=== PATIENT | male | born 1990 | race Caucasian/White ===

== ENCOUNTER → 2019-01-15 | Outpatient (CLI) | payer OTHER ==
[~2019-01-15] MED LIST: IOHEXOL 180 MG/ML 10 ML VIAL. ONE; VENL37.56 PO; methylPREDNISolone ACETATE 40 MG/ML VIAL. ONE; methylPREDNISolone ACETATE 80 MG/ML VIAL. ONE
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
== END | disposition home or self-care (01) ==
LOC: PNCL 13:42
PROVIDERS: ATTEND Anesthesiology
DX: M51.14 Intervertebral disc disorders with radiculopathy, thoracic region (principal); M51.16 Intervertebral disc disorders with radiculopathy, lumbar region; K08.409 Partial loss of teeth, unspecified cause, unspecified class; Z98.890 Other specified postprocedural states; Z79.899 Other long term (current) drug therapy; Z88.1 Allergy status to other antibiotic agents; Z88.8 Allergy status to other drugs, medicaments and biological substances; Z72.89 Other problems related to lifestyle
CPT/HCPCS: 62321; J1030; J1040; Q9965

== ENCOUNTER → 2019-02-05 | Outpatient (CLI) | payer OTHER ==
--- NOTE | 2019-02-06 07:39 | PAIN ---
DATE OF SERVICE: 02/05/2019 DIAGNOSES: Lumbar radiculopathy with lumbar degenerative disk disease thoracic degenerative disk disease. HISTORY OF PRESENT ILLNESS: The patient is a 28-year-old male, who returns for followup status post lumbar epidural steroid injection x 1 through T12-L1 level. The patient reports his pain is about the same. It is actually somewhat worse in the back itself and it is radiating more on the right side and in the right leg, anterior thigh and into the groin on the right side also. The patient reports no new motor or sensory deficits, but his legs become whether feeling very unstable, especially on the right side with standing and walking. He is still working, but is mostly on his feet doing light duty, but he is still on his feet most of his working day. The patient reports his pain is in the low back, mid back across the back into the right and left lower extremities and thighs, especially on the right side greater than left, but present bilaterally. The patient reports it is 8 on a scale of 10 at its worst in the past week, 8 on average and 5 at its least and is an 8 today. The patient reports it is tingling, burning, cramping, radiating, becoming more constant with walking, standing and tight at night and sleeping on the couch because it is a more supportive, which helps him sleep, but it is still waking up several times during the night because of the pain. The patient reports no new motor or sensory deficits. No new bowel or bladder incontinence, feels like a "tingling in the legs and feet, right greater than left" and a heavy sensation. PHYSICAL EXAMINATION: VITAL SIGNS: The patient's blood pressure 143/100, pulse 101, respirations 16, temperature 97.9 degrees Fahrenheit, weight is 261 pounds. GENERAL: The patient is awake, alert, oriented, appropriate, very pleasant demeanor. HEENT: Head shows normocephalic, atraumatic. Extraocular movements are intact and symmetrical. Oral cavity: Mucous membranes moist and pink. Dentition is intact. NECK: Shows anterior throat supple. BACK: Shows spine grossly in the midline. Normal appearing thoracic kyphosis and lumbar lordotic curvature. The patient's lumbar paraspinous muscle shows symmetrical on inspection. On palpation, it shows some moderate tenderness diffusely throughout the upper, middle and lower distribution of the paraspinous muscles, right equal to left. No specific atrophy or hypertrophy. The patient does show good rotational motion of the thoracic and lumbar spine, both laterally as well as extension and flexion without significant limitation or pain reported. EXTREMITIES: The patient's lower extremities show deep tendon reflexes at 2+ in the patellar, 1+ tendo-calcaneus tendons are equal. Motor exam remains strong with 5/5 dorsiflexion and extension bilaterally. Options were discussed with the patient. The patient's old chart was reviewed as was his current medication regimen updated. Current review of systems updated today as well. We will proceed with the second epidural steroid injection today at the L1-L2 level using C-arm fluoroscopic guidance. Risks were again discussed including, but not limited to bleeding, infection, possibility of epidural hematoma, subsequent neurologic compromise, dural puncture, headaches, spinal cord and/or nerve damage, side effects of steroid medication and poor results regarding pain control. The patient understands and wished to proceed. The patient will return to clinic in approximately 1 week for followup. She was counseled as to return appointment, activity level and side effects to be aware of. DIAGNOSIS: Lumbar radiculopathy with lumbar degenerative disk disease and thoracic degenerative disk disease. PROCEDURE: Lumbar epidural steroid injection under sterile prep and drape using local anesthetic at the L1-L2 level using C-arm fluoroscopic guidance. MEDICATION INJECTED: A total of 120 mg Depo-Medrol plus 10 mL of preservative-free normal saline and 2 mL of Isovue for contrast. CONDITION AT DISCHARGE: Stable. The patient tolerated procedure well, had no complications. SHYANN MARIE MD DR: SULEIMAN/jhonatan JOB#: [id number] / [id number]
== END ==
LOC: PNCL 13:38
PROVIDERS: ATTEND Anesthesiology
DX: M51.16 Intervertebral disc disorders with radiculopathy, lumbar region (principal); M51.34 Other intervertebral disc degeneration, thoracic region
CPT/HCPCS: 62323; J1030; J1040; Q9965; 62321

== ENCOUNTER → 2019-02-20 | Outpatient (CLI) | payer OTHER ==
[~2019-02-20] MED LIST changes: +LIDOCAINE 1% PF 2 ML VIAL. ONE
--- NOTE | 2019-02-20 14:38 | PAIN ---
DATE OF SERVICE: 02/20/2019 PROGRESS NOTE FOR PAIN CLINIC DIAGNOSES: Lumbar radiculopathy with lumbar degenerative disk disease and thoracic degenerative disk disease. HISTORY OF PRESENT ILLNESS: The patient is a 28-year-old male who returns for followup status post lumbar epidural steroid injection and thoracic epidural steroid injection. The patient reports only about 10-20% improvement overall with the injections, still pain across the low back, radiating more in the right than the left, at the right side and into the anterior, superior thigh as well as into the lower calves with numbness and tingling in his feet bilaterally. The patient reports a tingling and numbness is no better, pain is a bit improved in the back, but the numbness and tingling is still significant. The patient reports it is 8 on a scale of 10 at its worst over the past week, 7 on average, 4 at its least and is a 5 today. The patient reports it is aching and tight, tingling, burning, cramping, becoming more constant, more radiating, worse with standing on his feet, walking, working activities. The patient reports no loss of motor function. It still is disturbing him in sleep about every 3-4 hours. The patient reports no new bowel or bladder incontinence or other complaints. PHYSICAL EXAMINATION: VITAL SIGNS: The patient's blood pressure 141/96, pulse 98, respirations 20, temperature is 97.8 degrees Fahrenheit, weight is 262 pounds. GENERAL: The patient is awake, alert, oriented, appropriate, very pleasant demeanor. HEENT: Head shows normocephalic, atraumatic. Extraocular movements are intact and symmetrical. Oral cavity: Mucous membranes moist and pink. Dentition is intact. NECK: Shows anterior throat supple without palpable lymphadenopathy noted. Swallow reflex symmetrical. NECK: Shows full rotational motion of cervical spine both laterally as well as extension and flexion without difficulty. The patient's back shows spine grossly in the midline. Normal appearing thoracic kyphosis and lumbar lordotic curvature. Lumbar paraspinous muscle shows symmetrical on inspection. With palpation shows some moderate tenderness diffusely bilaterally throughout the upper, middle and lower distribution of paraspinous muscles without asymmetry, no trigger points, no radiation. EXTREMITIES: The patient's lower extremities show deep tendon reflexes at 2+ in the patellar, 1+ tendo-calcaneus tendons. Motor exam is strong with 5/5 dorsiflexion, extension, quadriceps and hamstring flexion and symmetrical with some moderate pain with quadriceps and hamstring flexion, more on the left than the right with resistance. Peripheral pulses are 1+ posterior tibia. No peripheral edema is noted. PLAN: Options were discussed with the patient. The patient's old chart was reviewed as his current medication regimen updated. Current review of systems updated today as well. We will proceed with a third in a series of lumbar epidural steroid injection today with fluoroscopic guidance. Risks were again discussed including, but not limited to bleeding, infection, possibility of epidural hematoma, subsequent neurological compromise, dural puncture, headaches, spinal cord and/or nerve damage, side effects of steroid medication and poor results regarding pain control. The patient understands and wished to proceed. The patient will return to the clinic in approximately 2 weeks for followup. He was counseled on return appointment, activity level and side effects to be aware of. DIAGNOSES: Lumbar and thoracic degenerative disk disease with radiculopathy. PROCEDURES: Lumbar epidural steroid injection, translaminar approach at L1-L2 level using C-arm fluoroscopic guidance under sterile prep and drape using local anesthetic. MEDICATION INJECTED: A total of 120 mg Depo-Medrol plus 10 mL of preservative-free normal saline and 2 mL of contrast. CONDITION AT DISCHARGE: Stable. The patient tolerated procedure well, had no complications. SHYANN MARIE MD DR: SULEIMAN/jhonatan JOB#: [id number] / [id number]
== END ==
LOC: PNCL 13:21
PROVIDERS: ATTEND Anesthesiology
DX: M51.16 Intervertebral disc disorders with radiculopathy, lumbar region (principal); M51.34 Other intervertebral disc degeneration, thoracic region
CPT/HCPCS: 62323; J1030; J1040; Q9965

== ENCOUNTER → 2019-06-16 | Outpatient (CLI) | payer OTHER ==
[~2019-06-16] MED LIST changes: +ALBU2.5V8 INH; +DOCU100C28 PO; +HYDR-2761 PO; -IOHEXOL 180 MG/ML 10 ML VIAL. ONE; -LIDOCAINE 1% PF 2 ML VIAL. ONE; +METH750T2 PO; +NAPR220T70 PO; +VENL37.5 PO; -methylPREDNISolone ACETATE 40 MG/ML VIAL. ONE; -methylPREDNISolone ACETATE 80 MG/ML VIAL. ONE
[2019-06-16 16:37] LABS: ALBUMIN 4.3 g/dL (3.4-5.0); ALBUMIN/GLOBULIN RATIO 1.2 (1.0-1.7); CALCIUM 9.6 mg/dL (8.5-10.1); CREATININE 1.1 mg/dL (0.7-1.3); GFR 80.3; POTASSIUM 3.9 mmol/L (3.5-5.1); TOTAL BILIRUBIN 0.6 mg/dL (0.2-1.0); TOTAL PROTEIN 7.9 g/dL (6.4-8.2)
[2019-06-16 16:57] LABS: BASO # 0.1 x10^3/uL (0.0-0.2); BASO % 1 % (0-3); EOS # 0.1 x10^3/uL (0.0-0.7); EOS % 2 % (0-3); HEMOGLOBIN 16.8 g/dL (13.0-17.5); LYMPH # 2.2 x10^3/uL (1.0-4.8); LYMPH % 35 % (24-48); MEAN CORPUSCULAR HEMOGLOBIN 31 pg (25-35); MEAN CORPUSCULAR HGB CONC 35 g/dL (31-37); MEAN CORPUSCULAR VOLUME 89 fL (79-100); MONO # 0.6 x10^3/uL (0.0-1.1); MONO % 9 % (0-9); NEUT # 3.3 x10^3/uL (1.8-7.7); NEUT % 53 % (31-73); PLATELET COUNT 231 x10^3/uL (140-400); RED BLOOD COUNT 5.38 x10^6/uL (4.30-5.70); RED CELL DISTRIBUTION WIDTH 13.3 % (11.5-14.5); WHITE BLOOD COUNT 6.2 x10^3/uL (4.0-11.0)
== END | disposition home or self-care (01) ==
LOC: SURGPAT 13:34
PROVIDERS: ATTEND Neurological Surgery
DX: Z01.818 Encounter for other preprocedural examination (principal); M51.15 Intervertebral disc disorders with radiculopathy, thoracolumbar region; M48.05 Spinal stenosis, thoracolumbar region; Z88.0 Allergy status to penicillin; Z88.8 Allergy status to other drugs, medicaments and biological substances
CPT/HCPCS: 36415; 80053; 82306; 85025; 87641

== ENCOUNTER 2019-06-26 08:01 | Observation (INO) | payer OTHER ==
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
[~2019-06-26] VITALS: Ht 177.8 cm; Wt 122.5 kg
[2019-06-26] VITALS (10 sets, daily range): BP systolic 106–140; BP diastolic 65–89
[~2019-06-26 08:01] MED LIST changes: +BACITRACIN 50,000 UNIT in IV NORMAL SALINE 1000ML BAG 1,000 ML IRR ONE; +BUPIVACAINE-EPI 0.5%-1:200000 MPF 30 ML VIAL. INJ ONE; -DOCU100C28 PO; +GELATIN SPONGE SIZE 100. ONE; -HYDR-2761 PO; +HYDROmorphone 2 MG/ML VIAL IV PRN; +KETOROLAC 60 MG/2 ML VIAL. ONE; -METH750T2 PO; +ONDANSETRON PF 4 MG/2 ML VIAL. IV PRN; +PROCHLORPERAZINE 10 MG/2 ML VIAL. IV PRN; +THROMBIN TOPICAL 20,000 UNIT SPRAY.SYRN KIT TP ONE; +VANCOMYCIN 1GM IVPB FOR OMNI 250 ML IV PRN; -VENL37.5 PO; +fentaNYL PF VIAL 100 MCG/2 ML VIAL IV PRN
[2019-06-26] MEDS: IV RINGERS,LACTATED 1000ML 1,000 ML IV SCH ×2 (08:36→15:18)
[2019-06-26] MEDS ORDERED: PROPOFOL 20 ML IV ONE (10:28)
[2019-06-26] MEDS ORDERED: LIDOCAINE 2% PF 5 ML VIAL. ONE (10:28)
[2019-06-26] MEDS ORDERED: DEXAMETHASONE SOD PHOS 20 MG/5 ML VIAL. ONE (10:28)
[2019-06-26] MEDS ORDERED: ONDANSETRON PF 4 MG/2 ML VIAL. ONE (10:28)
[2019-06-26] MEDS ORDERED: MIDAZOLAM HCL/PF 2 MG/2 ML VIAL. ONE (10:29)
[2019-06-26] MEDS ORDERED: REMIFENTANIL 2 MG VIAL. IV ONE (10:29)
[2019-06-26] MEDS ORDERED: PHENYLEPHRINE 10 MG/ML VIAL. ONE (10:29)
[2019-06-26] MEDS ORDERED: ROCURONIUM 50 MG/5 ML VIAL. ONE (10:29)
[2019-06-26] MEDS ORDERED: GLYCOPYRROLATE 1 MG/5 ML VIAL. ONE (11:40)
[2019-06-26] MEDS ORDERED: ePHEDrine PF IN SALINE 50 MG/10 ML SYRINGE. IV ONE (12:08)
[2019-06-26] MEDS ORDERED: PROPOFOL 100 ML IV ONE (12:34)
[2019-06-26] MEDS ORDERED: DESFLURANE > 120 MINUTES IH ONE (13:04)
[2019-06-26] MEDS ORDERED: REMIFENTANIL 1 MG VIAL. IV ONE (13:26)
[2019-06-26] MEDS ORDERED: PROPOFOL 50 ML IV ONE (13:28)
[2019-06-26] MEDS ORDERED: ALBUTEROL SULFATE 2.5 MG/3 ML NEBU. INH PRN (13:30)
[2019-06-26] MEDS ORDERED: 0.9 % SODIUM CHLORIDE 10 ML DISP.SYRIN. IV PRN (13:30)
[2019-06-26] MEDS ORDERED: ONDANSETRON PF 4 MG/2 ML VIAL. IV PRN (13:30)
[2019-06-26] MEDS ORDERED: fentaNYL PF VIAL 100 MCG/2 ML VIAL IVP PRN (13:30)
[2019-06-26] MEDS ORDERED: MAG HYDROX/ALUMINUM HYD/SIMETH 30 ML ORAL.SUSP PO PRN (13:30)
[2019-06-26] MEDS ORDERED: MAGNESIUM HYDROXIDE 2,400 MG/30 ML ORAL.SUSP. PO PRN (13:30)
[2019-06-26] MEDS ORDERED: ZOLPIDEM 5 MG TABLET. PO PRN (13:30)
[2019-06-26] MEDS ORDERED: ACETAMINOPHEN 325 MG TABLET. PO PRN (13:30)
[2019-06-26] MEDS ORDERED: NALOXONE 0.4 MG/ML VIAL. IV PRN (13:30)
[2019-06-26] MEDS ORDERED: HYDROcodone/APAP 5/325MG 1 TAB TABLET PO PRN (13:30)
[2019-06-26] MEDS ORDERED: diphenhydrAMINE HCL 25 MG CAPSULE PO PRN (13:30)
[2019-06-26] MEDS ORDERED: CALCIUM CARBONATE 500 MG TAB.CHEW PO PRN (13:30)
[2019-06-26] MEDS ORDERED: KETAMINE HCL IN NACL, ISO-OSM 50 MG/5 ML SYRINGE ONE (13:32)
[2019-06-26] MEDS ORDERED: NEOSTIGMINE METHYLSULFATE 5 MG/5 ML SYRINGE. ONE (14:14)
[2019-06-26] MEDS ORDERED: fentaNYL PF VIAL 100 MCG/2 ML VIAL ONE (14:18)
[2019-06-26] MEDS: fentaNYL PF VIAL 100 MCG/2 ML VIAL IV PRN ×2 (15:34→16:03)
[2019-06-26] MEDS: MORPHINE SULFATE 2 MG/ML VIAL. IV PRN ×2 (15:34→16:04)
[2019-06-26] MEDS ORDERED: POTASSIUM CL 20MEQ D5-0.45NACL 1,000 ML IV SCH (16:00)
--- NOTE | 2019-06-26 16:10 | NUR ---
Arrived to unit by bed from PACU. Alert and oriented x's 4. Dressing on lower back intact with some shadowing. Replace a new ice pack to lower back. Pt able to move all extremities without difficulty or pain. Pedal pulses + bilaterally and warm to touch. No c/o pain or numbness. TARI's and LAY's on bilaterally. IVF's intact and infusing. Oriented to room and controls. Side rails up x's 2 with call light in reach. Cont. monitor.
[2019-06-26] MEDS: METHOCARBAMOL 750 MG TABLET PO PRN (16:36)
[2019-06-26] MEDS: HYDROcodone/APAP 5/325MG 1 TAB TABLET PO PRN ×2 (16:38→20:14)
[2019-06-26] MEDS: DOCUSATE SODIUM 100 MG CAPSULE. PO SCH (21:23)
[2019-06-26] MEDS: NAPROXEN 500 MG TABLET PO SCH (21:23)
[2019-06-27 03:22] VITALS: BP 112/52
[2019-06-27] MEDS: HYDROcodone/APAP 5/325MG 1 TAB TABLET PO PRN ×2 (06:29→12:14)
[2019-06-27 06:37] VITALS: BP 111/61
--- NOTE | 2019-06-27 08:00 | NUR ---
AWAKE. DENIES PAIN IN HIS RIGHT LEG; HE IS RATING IT 2-3 AT THE MOST. HE HAS GOOD STRENGTH, SENSATION AND MOTION AND BILATERAL LOWER EXTREMITIES. FATHER AT BEDSIDE. DRESSING TO MIDDLE OF BACK HAS SCANT AMOUNT OF DRAINAGE.
[2019-06-27] MEDS: NAPROXEN 500 MG TABLET PO SCH (08:21)
[2019-06-27] MEDS: METHOCARBAMOL 750 MG TABLET PO PRN (08:21)
[2019-06-27] MEDS: DOCUSATE SODIUM 100 MG CAPSULE. PO SCH (08:21)
[2019-06-27] MEDS ORDERED: FLU VAX QS 2019-20 (36MOS+)/PF 0.5 ML SYRINGE. VAX IM ONE (09:00)
[2019-06-27] MEDS ORDERED: VENLAFAXINE 50 MG TABLET. PO SCH (09:00)
[2019-06-27] MEDS ORDERED: VENL37.5 PO (09:45)
[2019-06-27 12:17] VITALS: BP 142/94
[2019-06-27] MEDS ORDERED: METH750T2 PO (12:54)
[2019-06-27] MEDS ORDERED: HYDR-2761 PO (12:54)
[2019-06-27] MEDS ORDERED: DOCU100C28 PO (12:54)
--- NOTE | 2019-06-27 12:56 | DISCH ---
DISCHARGE INSTRUCTIONS Condition on Discharge Condition on Discharge: Stable Activity After Discharge Activity Instructions for Disc: Activity as tolerated, Avoid exertion Other activity instructions: no driving for a week Bathing Instructions: Shower-keep dressing dry Lifting Instructions after Dis: No heavy lifting, No pulling or pushing Diet after Discharge Additional Diet Restrictions: resume home diet Wound Incision Care Wound/Incision Care: Ice to area for comfort Other wound/incision instructi: may remove dressing tomorrow if dry then may shower, no soaking Contacting the [facility] after DC Call your doctor for: Concerns you may have Follow-Up Follow up with: Dr. Burgos's nurse in 2 weeks [phone] NATHALY BURGOS MD Jun 27, 2019 12:56
--- NOTE | 2019-06-27 13:00 | NUR ---
REVIEWED WRITTEN DISCHARGE INSTRUCTIONS WITH PATIENT AND FATHER. DISCUSSED RESTRICTIONS TO ACTIVITIES OF DAILY LIVING, SUCH LIFTING, BATHING AND DRIVING. DISCUSSED INCISIONAL CARE AND DEMONSTRATED. SUPPLIES GIVEN. ALREADY MADE AN APPT WITH DR. BURGOS -2 WEEKS POST OP. DISMISSED TO HOME.
--- NOTE | 2019-06-27 13:30 | NUR ---
LOCO STARTED BLEEDING WHEN GETTING IN WHEELCHAIR. DRESSING REMOVED; CLEANSED WITH CHLOR PREP THEN 2 4X4'S FOLDED THEN 2 TELFA ISLANDS APPLIED. DISMISSED TO HOME WITH FATHER.
[2019-06-28] MEDS ORDERED: VENLAFAXINE XR 37.5 MG CAP.ER.24H. PO SCH (09:00)
--- NOTE | 2019-07-01 16:06 | PATHOLOGY ---
[facility] Accession Number: [id number] . 01 Material submitted: . vertebral column - THORACIC AND LUMBAR DISC AND DECOMPRESSION . 01 Clinical history: . Stenosis, radiculopathy, thoracic lumbar herniated disc . 02 Diagnosis: Segments of fibrocartilaginous, adipose, and skeletal muscle tissue and bone, thoracic and lumbar disc and decompression: - Degenerative changes of fibrocartilaginous tissue. (JPM:tegan; 07/01/2019) S 07/01/2019 0854 Local . 02 Comment: There is no evidence of an acute inflammatory process or malignancy. (JPM:tegan; 07/01/2019) . 02 Electronically signed: . Mauricio Evans MD, Pathologist NPI- [id number] . 01 Gross description: . Received in formalin labeled "Darren Valdez, thoracic and lumbar disc and decompression," is a 3.4 x 1.8 x 0.3 cm aggregate of pale ayers soft tissue fragments admixed with fragments of bone/cartilage. The specimen is submitted representatively in cassette A1, following decalcification. (DAC; 06/30/2019) XDC/XDC 06/30/2019 0902 Local . 02 Pathologist provided ICD-10: M51.36, M51.34 . 02 CPT . 595603, [id number] Specimen Comment: A courtesy copy of this report has been sent to [phone], [phone] Specimen Comment: [id number] Specimen Comment: Report sent to / DR VANCE Specimen Comment: A duplicate report has been generated due to demographic updates. Performed at: 01 [facility] [address], [place], [place] [id number] MD Jason Marino MD Phone: [phone] Performed at: 02 [facility] [address], [place] [id number] MD Mauricio Evans MD Phone: [phone]
--- NOTE | 2019-07-01 18:33 | OP ---
DATE OF SURGERY: 06/26/2019 PREOPERATIVE DIAGNOSES: Lumbar spinal stenosis T12-L1 and L1-L2. POSTOPERATIVE DIAGNOSES: Lumbar spinal stenosis T12-L1, L1-L2. OPERATION PERFORMED: Lumbar laminectomy, T12-L1 and L1-L2. The operation was done with EMG monitoring, SSEP monitoring, fluoroscopy, microscopic dissection. SURGEON: Ronnie Burgos M.D. GENERAL INSPECTOR: KIARA Centeno assisted with the surgery. She assisted with the decompression as well as closure. OPERATIVE INDICATIONS: The patient is a pleasant 29-year-old who developed intractable back and bilateral lower extremity symptoms and numbness and was found to have lumbar spinal stenosis at T12-L1 and L1-L2. This was due to combination of small canal plus a moderate amount of disc bulging at both of these levels. He failed extensive conservative measures and after considerable discussion with the patient as well as with other neurosurgeon, I recommended lumbar laminectomy without instrumentation. I discussed with him the surgery and the risks, the technique and he wished for me to go ahead. DESCRIPTION OF PROCEDURE: Following general endotracheal anesthesia, the patient was positioned prone on the Yovani table. Lumbar region prepped and draped in standard fashion. TARI hose and AV impulse boots were applied for DVT prophylaxis. Microscope was draped. Fluoroscopy was draped and brought into field. Monitoring was established. Ancef 2 grams was given less than 1 hour prior to initiation of the surgery. Using fluoroscopic guidance, a midline incision was made extending from superior T12 through L2 and I dissected down through skin and subcutaneous tissue and placed self-retaining retractors. I then brought in the high speed air drill and the microscope. Using high speed air drill, I drilled away all of the spinous processes and thinned the lamina of T12-L1 and L1-L2. I then brought in the matchstick type david and continued with my decompression at both L1-L2 and then working superiorly T12-L1. After thinning the bone, I peeled away thickened ligamentum from medial to lateral. There was considerable narrowness on the left side at L1-L2 and in fact at this level, I thinned the bone and then used the 2 mm micro Kerrison to trim away the small leaflet of bone to help fully decompressed this region. As this moved back, I was able to remove ligament and worked superiorly and inferiorly and enlarged my laminectomy. I went to the right side in a similar fashion, enlarged laminectomy and fully decompressed well above and well below the disc space. I did palpate the disc, which was bulging slightly, but extremely firm and partly calcified and I did not feel it was calcified and I did not feel a discectomy was warranted. I went up and then performed the identical operation at T12-L1 and confirmed my position fluoroscopically and fully decompressed the entire region at both levels. At this point, then I irrigated copiously with antibiotic solution. Hemostasis was excellent. I removed the retractors, obtained hemostasis in the muscle and I closed the wound in layers with absorbable suture and skin was closed with 4-0 subcuticular stitch. I felt the surgery went very well and the patient awakened uneventfully to recovery room in excellent condition with normal strength in his lower extremities. I was quite pleased with the surgery. RONNIE BURGOS MD DR: [email or web address] JOB#: [id number] / [id number] CALOS
== END 2019-06-27 13:40 | disposition home or self-care (01) ==
LOC: SURG 08:01 → 4 SOUTHEST 16:15
PROVIDERS: ADMIT Neurological Surgery; ATTEND Neurological Surgery
DX: M48.062 Spinal stenosis, lumbar region with neurogenic claudication (principal); M51.16 Intervertebral disc disorders with radiculopathy, lumbar region; Z88.0 Allergy status to penicillin; Z88.1 Allergy status to other antibiotic agents; J45.909 Unspecified asthma, uncomplicated
CPT/HCPCS: 63047; 63048; 76000; 88304; 88311; 90471; 90686; 97161; A7015; G0378; G0379; J0171; J1100; J1885; J2001; J2250; J2270; J2405; J2704; J2710; J3010; J3370; J3490; J7030